=== PATIENT | male | born 1955 | race Hispanic/Latino ===

== ENCOUNTER 2017-09-22 10:12 | Day surgery (SDC) | payer MEDICARE, SELFPAY ==
[2017-09-17 12:02] VITALS: BMI 25.9
[2017-09-22] MEDS ORDERED: Lactated Ringer's 1,000 ML IV ONE ×2 (12:35→13:54)
[2017-09-22] MEDS ORDERED: Propofol 10 mg/ml Inj (20 ML) ONE (12:36)
[2017-09-22] MEDS ORDERED: Succinylcholine 200 mg/10 ml Inj IV ONE (12:37)
[2017-09-22] MEDS ORDERED: Neostigmine Methylsulfate 2 MG/2 ML ML IV ONE (12:37)
[2017-09-22] MEDS ORDERED: Midazolam 2 MG/2 ML VIAL ONE (12:37)
[2017-09-22] MEDS ORDERED: Rocuronium 10 mg/ml (5 ml) ONE (12:37)
[2017-09-22] MEDS ORDERED: Sodium Chloride 0.9% 10 ML IV ONE (13:09)
[2017-09-22] MEDS ORDERED: ePHEDrine 50 mg/ml Inj ONE (13:09)
[2017-09-22] MEDS ORDERED: HYDROmorphone 0.5 mg/0.5 ml ISec ONE (14:01)
[2017-09-22] MEDS: HYDROmorphone 0.5 mg/0.5 ml ISec IVP PRN ×3 (14:02→14:40)
--- NOTE | 2017-09-22 14:03 | PCM.SURG1 ---
Surgeon's Initial Post Op Note - Surgeon's Notes Surgeon: Dr. Mendoza Counselor At Law: Dr. Parmar Type of Anesthesia: General Endo Pre-Operative Diagnosis: Left Inguinal Hernia Operative Findings: See Operative dictation Post-Operative Diagnosis: Left Direct Inguinal hernia Operation Performed: Left Open Inguinal Hernia Repair With Mesh Specimen/Specimens Removed: None Estimated Blood Loss: EBL {In ML}: 10 Blood Products Given: N/A Drains Used: No Drains Post-Op Condition: Good Date of Surgery/Procedure: 09/22/17 Time of Surgery/Procedure: 14:03
--- NOTE | 2017-09-22 14:07 | CP.SDSHP ---
Same Day Surgery H & P - History Proposed Procedure: Left inguinal hernia - Previous Medical/Surgical History Cardiac: Hypertension Pain: 2.Mild Pain - Allergies Allergies: Allergies No Known Allergies Allergy (Verified 09/22/17 10:58) - Physical Exam General Appearance: NAC, NCAT Vital Signs: Vital Signs 09/22/17 09/22/17 11:51 11:58 Temperature 97.6 F Pulse Rate 73 73 Respiratory 20 Rate Blood Pressure 126/81 O2 Sat by Pulse 97 Oximetry Mental Status: Alert & Oriented x3 Neuro: WNL Heart: WNL Lungs: WNL GI: WNL - {Optional Preform as Required} Abdomen: WNL Integument: WNL - Impression Impression: 62M with left inguinal hernia Pt. Evaluated Today:Candidate for Anesthesia & Procedure: Yes - Date & Time Date: 09/22/17 Time: 14:06 Short Stay Discharge - Short Stay Discharge Admitting Diagnosis/Reason for Visit: K40.90 Disposition: HOME/ ROUTINE Referrals: Gabriel Garnica MD [Primary Care Provider] - Follow-up: Followup in 7-[address] Chen office Instructions: Inguinal Hernia (DC) Additional Instructions (Diet, Activity): No heavy lifting for 6-8 weeks, no diet restriction, ok to remove bandage and shower on 09/24/16, do not soak, take medication as directed on label can supplement with over the counter pain medication. If you develop fevers chills chest pain or any new or concerning symptoms please call the office, your primary care doctor or go to the ER for evaluation.
[2017-09-22] MEDS ORDERED: Lactated Ringer's 1,000 ML IV SCH (14:30)
[2017-09-22 17:55] VITALS: BP 140/80; PULSE 73; RESP 18; TEMP 97.5; O2SAT 97
--- NOTE | 2017-09-23 23:56 | OP ---
PROCEDURE DATE: 09/22/2017 SURGEON: Tomeka Mendoza MD. TORTS LAW PROFESSOR: Dr. Parmar. ANESTHESIA: General. ANESTHESIA ADMINISTERED BY: Dr. Monroe. PREOPERATIVE DIAGNOSIS: Left inguinal hernia. POSTOPERATIVE DIAGNOSIS: Left inguinal hernia. PROCEDURE: Left inguinal hernia repair with mesh. DESCRIPTION OF OPERATION: With the patient in the supine position under adequate general anesthesia, the left groin was prepped and draped in the usual sterile manner. Transverse incision was made in the left upper groin crease, taken down through the subcutaneous tissue. The external oblique fascia was identified and opened from the external inguinal ring to the internal inguinal ring. The spermatic cord was identified and dissected as it passed over the pubic tubercle and elevated over a Yudelka drain. The spermatic cord was moderately thickened and dissection revealed a large fatty indirect hernia sac, which was dissected back to the area of the internal inguinal ring. The sac was inverted and the internal ring was noted to be moderately enlarged. A size medium ProLoop plug was positioned medial to the spermatic cord and sutured beneath the transversalis fascia and the shelving edge of the inguinal ligament using 2-0 Prolene sutures. The flat mesh portion of the hernia mesh was trimmed to approximate the inguinal floor and was sutured medially to the area of the pubic tubercle and then superiorly to the transversalis fascia and inferiorly to the shelving edge of the inguinal ligament including the sutures used to position the plug. The mesh was continued laterally beyond the internal ring and positioned well beneath the external oblique. The external oblique was then closed with running suture of 0 Vicryl. Subcutaneous tissues were approximated with 3-0 Vicryl sutures and closure was performed with brennen. Dry sterile dressing was applied. The patient tolerated the procedure well and transferred to recovery room in stable condition. Estimated blood loss for the procedure was 10 mL. Tomeka Mendoza MD MAN
== END 2017-09-22 18:20 | disposition home or self-care (01) ==
LOC: H.OPSURG 10:12
PROVIDERS: ATTEND Specialist
DX: K40.90 Unilateral inguinal hernia, without obstruction or gangrene, not specified as recurrent (principal); I10 Essential (primary) hypertension; M19.90 Unspecified osteoarthritis, unspecified site
CPT/HCPCS: 49505; C1781; J0330; J0690; J1170; J2250; J2704; J2710; J3010; J7030; J7120